=== PATIENT | male | born 1995 | race African-American/Black ===

== ENCOUNTER 2016-11-23 14:28 | Emergency (ER) | payer OTHER ==
[2016-11-23 14:11] LABS: INFLUENZA A NEG (NEG); INFLUENZA B NEG (NEG)
[~2016-11-23 14:28] MED LIST: ANIMAL SHAPES1 EAC2; LOTRISONE CREAM TOP
== END 2016-11-23 15:26 | disposition home or self-care (01) ==
LOC: SED 14:28
PROVIDERS: Emergency Medicine
DX: J03.90 Acute tonsillitis, unspecified (principal)
CPT/HCPCS: 87651; 87804; 99283

== ENCOUNTER 2017-04-23 02:49 | Emergency (ER) | payer OTHER ==
[~2017-04-23] VITALS: Ht 190.5 cm; Wt 88.5 kg
[2017-04-23] MEDS ORDERED: NO MEDICATIONS (03:02)
== END 2017-04-23 04:23 | disposition home or self-care (01) ==
LOC: SED 02:49
DX: J02.9 Acute pharyngitis, unspecified (principal)
CPT/HCPCS: 87651; 99283